=== PATIENT | female | born 1970 | race Two or more races ===

== ENCOUNTER → 2017-11-25 | Outpatient (CLI) | payer OTHER ==
[~2017-11-25] MED LIST: FLONASE16 GM NS; GILTUSS TR TAB1 EACH PO; PAXIL CR25 MG; VASOTEC2.5 MG; VASOTEC5 MG; ZITHROMAX TRI-500 MG PO; ZYRTEC10 MG PO
== END | disposition home or self-care (01) ==
LOC: PPHC 10:24
DX: B34.9 Viral infection, unspecified (principal)

== ENCOUNTER 2018-01-28 08:11 | Outpatient (CLI) | payer OTHER | END 2018-01-28 08:15 | disposition home or self-care (01) | LOC: RAD 08:11 | DX: Z00.01 Encounter for general adult medical examination with abnormal findings (principal); M25.571 Pain in right ankle and joints of right foot ==

== ENCOUNTER → 2019-05-03 | Outpatient (CLI) | payer OTHER ==
[~2019-05-03] MED LIST changes: +LOSARTAN POTAS100 MG
== END | disposition home or self-care (01) ==
LOC: RAD 08:01
DX: S96.912A Strain of unspecified muscle and tendon at ankle and foot level, left foot, initial encounter (principal)

== ENCOUNTER → 2020-12-28 09:15 | Outpatient (CLI) | payer OTHER ==
[~2020-12-28 09:15] MED LIST changes: +PEPCID AC20 MG PO
== END | disposition home or self-care (01) ==
LOC: PPH VACUNA 09:15
DX: Z23 Encounter for immunization (principal)

== ENCOUNTER 2021-04-10 11:00 | Emergency (ER) | payer OTHER ==
[~2021-04-10] VITALS: Ht 165.1 cm; Wt 98.9 kg
[~2021-04-10 11:00] MED LIST changes: -PEPCID AC20 MG PO
[2021-04-10] MEDS ORDERED: PEPCID AC20 MG PO (14:17)
== END 2021-04-10 14:26 | disposition home or self-care (01) ==
LOC: ER 11:00
DX: K21.9 Gastro-esophageal reflux disease without esophagitis (principal); R11.11 Vomiting without nausea; Z03.818 Encounter for observation for suspected exposure to other biological agents ruled out; R53.81 Other malaise

== ENCOUNTER 2021-08-03 09:00 | Outpatient (CLI) | payer OTHER ==
[~2021-08-03 09:00] MED LIST changes: +PEPCID AC20 MG PO
== END 2021-08-03 09:30 | disposition home or self-care (01) ==
LOC: PPH VACUNA 09:00
PROVIDERS: ATTEND Emergency Medicine Pediatric Emergency Medicine
DX: Z23 Encounter for immunization (principal)

== ENCOUNTER 2021-10-11 09:55 | Outpatient (CLI) | payer OTHER | END 2021-10-11 10:10 | disposition home or self-care (01) | LOC: RAD 09:55 | PROVIDERS: ATTEND Physical Medicine & Rehabilitation | DX: M25.511 Pain in right shoulder (principal) ==

== ENCOUNTER 2023-04-18 07:24 | Outpatient (CLI) | payer OTHER ==
[~2023-04-18 07:24] MED LIST changes: +NORFLEX100MG PO
== END 2023-04-18 15:24 | disposition home or self-care (01) ==
LOC: MRI 07:24
PROVIDERS: ATTEND Internal Medicine Gastroenterology
DX: R94.5 Abnormal results of liver function studies (principal)
CPT/HCPCS: 74181

== ENCOUNTER 2024-04-01 08:02 | Outpatient (CLI) | payer OTHER | END 2024-04-01 08:22 | disposition home or self-care (01) | LOC: TOM 08:02 | PROVIDERS: ATTEND Surgery | DX: J98.4 Other disorders of lung (principal); E04.2 Nontoxic multinodular goiter ==

== ENCOUNTER 2024-05-21 10:16 | Outpatient (CLI) | payer OTHER | END 2024-05-21 10:30 | disposition home or self-care (01) | LOC: MRI 10:16 | PROVIDERS: ATTEND Specialist | DX: M17.12 Unilateral primary osteoarthritis, left knee (principal) | CPT/HCPCS: 73718 ==